=== PATIENT | female | born 1985 | race African-American/Black ===

== ENCOUNTER 2016-10-19 22:01 | Emergency (ER) | payer MEDICAID ==
[~2016-10-19] VITALS: Ht 167.6 cm; Wt 78.0 kg
[~2016-10-19 22:01] MED LIST: AUGM875T PO; IBUP800T23 PO; MEDR4PAK3 PO; METH500T3 PO
[2016-10-19 22:06] VITALS: BP 144/83; PULSE 73; RESP 15; TEMP 98.3; O2SAT 98
--- NOTE | 2016-10-19 22:41 | PD ---
Physical Exam Time Seen by Provider: 22:41 Narrative 31 y/o female here with L sided neck pain which started this morning. Vital signs reviewed. Seen at triage desk. Awaiting bed placement. Data Data Last Documented VS Vital Signs Date Time Temp Pulse Resp B/P Pulse Ox O2 Delivery O2 Flow Rate FiO2 10/19/16 22:06 98.3 73 15 144/83 98 Room Air [facility] Medical Record Reviewed: Yes Supervised Visit with GRABIEL: Bernabe Lyn Oct 19, 2016 22:41
--- NOTE | 2016-10-19 23:28 | PD ---
HPI Chief Complaint: Back/ Neck Pain or Injury Time Seen by Provider: 23:23 Travel History International Travel<30 days: No Contact w/Intl Traveler<30days: No Traveled to known affect area: No History of Present Illness HPI Patient comes in for evaluation of left-sided neck pain that began earlier today while she was at work. Patient denies any known injury, sore throat, difficulty swallowing, weight loss, chest pain, shortness of breath, headache, ear pain, or . Patient describes pain as a soreness on left side of her anterior neck that has since resolved. Patient denies anything for this. Denies anything making it better or worse. Denies any radiation of the pain. PFSH Past Medical History Hx Anticoagulant Therapy: No Asthma: Yes Blood Disorders: No Cancer: No Cardiovascular Problems: No Chemotherapy: No Cerebrovascular Accident: No Diabetes: No Diminished Hearing: No Endocrine: No Gastrointestinal Disorders: No Genitourinary: No Headaches: Yes Implanted Vascular Access Dvce: No Musculoskeletal: Yes (CHRONIC BACK PAIN) Neurologic: No Psychiatric: No Reproductive: No Respiratory: No ?: Not LMP: 09/17/16 Menopausal: No : 3 Para: 3 Tubal Ligation: Yes Past Surgical History Section: Yes (3) Gynecologic Surgery: Yes (C-SEC X3) Hysterectomy: No Other Surgery: Yes Social History Alcohol Use: Yes (OCC) Tobacco Use: Yes (1/2 PPD) Substance Use: No Allergies-Medications (Allergen,Severity, Reaction): Coded Allergies: No Known Allergies (Verified , 10/19/16) Reported Meds & Prescriptions Reported Meds & Active Scripts Active No Active Prescriptions or Reported Medications Review of Systems Except as stated in HPI: all other systems reviewed are Neg Physical Exam Narrative GENERAL: Well-developed, overly nourished, in no acute distress, and non-ill appearing. SKIN: Focused skin assessment warm and dry. HEAD: Atraumatic. Normocephalic. EYES: Pupils equal and round. EOMI. No scleral icterus. No injection or drainage. ENT: No nasal bleeding or discharge. Mucous membranes pink and moist. Posterior pharynx nonerythematous without exudate. Uvula is midline. Tonsils are nonerythematous and without exudate. No obvious dental caries. There are no visible or palpable abscesses. Floor the mouth, submandibular, and submental are all soft to palpation. NECK: Trachea midline. No cervical lymphadenopathy. Supple. No nuclear rigidity. No reproducible pain over patient's anterior lateral neck patient states pain was. No crepitus. RESPIRATORY: No accessory muscle use. No respiratory distress. MUSCULOSKELETAL: No obvious deformities. No clubbing. No cyanosis. No edema. Full range of motion. NEUROLOGICAL: Awake and alert. No obvious cranial nerve deficits. Motor grossly within normal limits. Normal speech. PSYCHIATRIC: Appropriate mood and affect; insight and judgment normal. Data Data Last Documented VS Vital Signs Date Time Temp Pulse Resp B/P Pulse Ox O2 Delivery O2 Flow Rate FiO2 10/19/16 22:06 98.3 73 15 144/83 98 Room Air MDM Medical Decision Making Medical Screen Exam Complete: Yes Emergency Medical Condition: Yes Differential Diagnosis Pharyngitis, sialolithiasis, torticollis, tonsillitis, other Narrative Course Patient in no obvious distress upon re-evaluation. Patient reports all symptoms resolved without any medical intervention. Any questions/concerns in reference to patient diagnosis/condition discussed and clarified prior to patient's discharge. Reinforced sheer importance of close follow up with patient 's primary physician or primary care clinic. Instructed patient to return to ED immediately, if symptoms return/worsen. Pt showed understanding of above instructions. Further instructions and recommendations were detailed in discharge paperwork. Pt ambulated without difficulty out of ED at discharge. Diagnosis Primary Impression: Neck pain Patient Instructions: Acute Neck Pain (GEN), General Instructions Additional Instructions: Follow-up with your primary care physician in one to 4 days for reevaluation. Use [id number] Tylenol and/or ibuprofen as needed for pain. Follow instructions on the packaging. Return to the emergency department if symptoms get worse. Scripts No Active Prescriptions or Reported Meds Disposition: 01 DISCHARGE HOME Condition: Stable Long Flores Oct 19, 2016 23:28
== END 2016-10-19 23:50 | disposition home or self-care (01) ==
LOC: NEPK 22:01
DX: M54.2 Cervicalgia (principal)
CPT/HCPCS: 99282

== ENCOUNTER 2016-11-11 11:57 | Emergency (ER) | payer MEDICAID ==
[~2016-11-11] VITALS: Ht 167.6 cm; Wt 90.0 kg
[2016-11-11 11:58] VITALS: BP 130/70; PULSE 92; RESP 20; TEMP 98.7; O2SAT 99
--- NOTE | 2016-11-11 12:13 | PD ---
HPI Chief Complaint: Injury Time Seen by Provider: 12:06 Travel History International Travel<30 days: No Contact w/Intl Traveler<30days: No Traveled to known affect area: No History of Present Illness HPI This is a 31-year-old female who presents to the emergency department with pain in her right elbow, constant, moderate severity ever since she banged it when she was working at the [employer] last night. She denies any weakness or numbness. PFSH Past Medical History Hx Anticoagulant Therapy: No Asthma: Yes Blood Disorders: No Cancer: No Cardiovascular Problems: No Chemotherapy: No Cerebrovascular Accident: No Diabetes: No Diminished Hearing: No Endocrine: No Gastrointestinal Disorders: No Genitourinary: No Headaches: Yes Implanted Vascular Access Dvce: No Musculoskeletal: Yes (CHRONIC BACK PAIN) Neurologic: No Psychiatric: No Reproductive: No Respiratory: No ?: Not LMP: 10/26/2016 Menopausal: No : 3 Para: 3 Tubal Ligation: Yes Past Surgical History Section: Yes (3) Gynecologic Surgery: Yes (C-SEC X3) Hysterectomy: No Other Surgery: Yes Social History Alcohol Use: Yes (OCC) Tobacco Use: Yes (1/2 PPD) Substance Use: No Allergies-Medications (Allergen,Severity, Reaction): Coded Allergies: No Known Allergies (Verified , 11/11/16) Reported Meds & Prescriptions Reported Meds & Active Scripts Active No Active Prescriptions or Reported Medications Review of Systems General / Constitutional: No: Fever, Chills Gastrointestinal: No: Nausea, Vomiting Physical Exam Narrative GENERAL: Well-appearing, no acute distress, nontoxic SKIN: Warm and dry. HEAD: Atraumatic. Normocephalic. ENT: No nasal bleeding or discharge. Moist mucous membranes MUSCULOSKELETAL: Tender to palpation over the right olecranon, some pain with range of motion of the right elbow Vascular: 2+ right radial pulse with normal capillary refill. NEUROLOGICAL: Awake and alert. No obvious cranial nerve deficits. Motor grossly within normal limits. Normal speech. Sensation and motor intact in the right median, ulnar and radial distributions PSYCHIATRIC: Appropriate mood and affect; insight and judgment normal. Data Data Last Documented VS Vital Signs Date Time Temp Pulse Resp B/P Pulse Ox O2 Delivery O2 Flow Rate FiO2 11/11/16 12:08 Room Air 11/11/16 11:58 98.7 92 20 130/70 99 Orders Elbow, Complete (4 Vws) (11/11/16 ) Ibuprofen (Motrin) (11/11/16 12:15) MDM Medical Decision Making Medical Screen Exam Complete: Yes Emergency Medical Condition: Yes Interpretation(s) Last 24 hours Impressions Elbow X-Ray 11/11/16 0000 Signed Impressions: Service Date/Time: Friday, November 11, 2016 12:50 - CONCLUSION: Unremarkable examination of the right elbow. Omero Jackson MD Differential Diagnosis Olecranon fracture, contusion, muscle sprain Narrative Course This is a 31-year-old female who presents to the emergency department having hit her elbow yesterday at work. She has a fairly benign exam. X-ray demonstrates no acute fracture. I suspect she has a contusion. Patient will be discharged home with anti-inflammatories. Diagnosis Primary Impression: Elbow contusion Qualified Code: S50.01XA - Contusion of right elbow, initial encounter Patient Instructions: General Instructions Additional Instructions: If you develop increasing swelling, severe pain, numbness or weakness return to the emergency room. Med/Other Pt SpecificInfo: Prescription(s) given Scripts Ibuprofen 600 Mg [id number] Mg PO Q6H PRN (Pain/Inflammation) #40 TAB Ref 0 Prov:Becca Ledesma MD 11/11/16 Disposition: 01 DISCHARGE HOME Condition: Stable Becca Ledesma MD Nov 11, 2016 12:13
[2016-11-11] MEDS ORDERED: IBUPROFEN 600 MG TAB PO ONE (12:15)
--- NOTE | 2016-11-11 13:04 | RADRPT ---
EXAM DATE/TIME: 11/11/2016 12:50 [facility] COMPARISON: No previous studies available for comparison. INDICATIONS : Bumped right elbow at work yesterday, complains of pain posterior right elbow. MEDICAL HISTORY : None. SURGICAL HISTORY : None. ENCOUNTER: Initial ACUITY: 2 days PAIN SCORE: 7/10 LOCATION: Right elbow FINDINGS: Multiple view examination of the right elbow demonstrates no soft tissue swelling, joint effusion, or fracture. The osseous structures are in normal alignment. Bony mineralization is normal. CONCLUSION: Unremarkable examination of the right elbow. Omero Jackson MD on November 11, 2016 at 12:55 Board Certified Radiologist. This report was verified electronically.
[2016-11-11] MEDS ORDERED: IBUP-232 PO (13:20)
== END 2016-11-11 13:37 | disposition home or self-care (01) ==
LOC: NEPD 11:57
DX: S50.01XA Contusion of right elbow, initial encounter (principal); J45.909 Unspecified asthma, uncomplicated; F17.200 Nicotine dependence, unspecified, uncomplicated; W22.8XXA Striking against or struck by other objects, initial encounter
CPT/HCPCS: 73080; 99283

== ENCOUNTER 2016-12-18 14:05 | Emergency (ER) | payer MEDICAID, OTHER ==
[~2016-12-18] VITALS: Ht 167.6 cm; Wt 97.0 kg
[~2016-12-18 14:05] MED LIST changes: -AUGM875T PO; +IBUP-232 PO; -IBUP800T23 PO; -MEDR4PAK3 PO; -METH500T3 PO
[2016-12-18 14:07] VITALS: BP 124/88; PULSE 90; RESP 20; TEMP 98.6; O2SAT 99
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
[2016-12-18] MEDS ORDERED: ROBA500T PO (14:24)
[2016-12-18] MEDS ORDERED: IBUP800T23 PO (14:24)
[2016-12-18] MEDS ORDERED: IBUPROFEN 800 MG TAB ONE (14:27)
[2016-12-18] MEDS ORDERED: METHOCARBAMOL 500 MG TAB ONE (14:27)
[2016-12-18] MEDS ORDERED: METHOCARBAMOL 500 MG TAB PO ONE (14:30)
[2016-12-18] MEDS ORDERED: IBUPROFEN 800 MG TAB PO ONE (14:30)
== END 2016-12-18 15:07 | disposition home or self-care (01) ==
LOC: NEPK 14:05
DX: S46.812A Strain of other muscles, fascia and tendons at shoulder and upper arm level, left arm, initial encounter (principal); F17.200 Nicotine dependence, unspecified, uncomplicated; Z87.09 Personal history of other diseases of the respiratory system; Z87.39 Personal history of other diseases of the musculoskeletal system and connective tissue; V89.2XXA Person injured in unspecified motor-vehicle accident, traffic, initial encounter
CPT/HCPCS: 99283